=== PATIENT | male | born 1965 | race Caucasian/White ===

== ENCOUNTER 2020-07-09 16:21 | Emergency (ER) | payer OTHER, SELFPAY ==
--- NOTE | 2020-07-09 | ECG_ITS ---
Test Reason : CHEST PAIN Blood Pressure : / mmHG Vent. Rate : 102 BPM Atrial Rate : 102 BPM P-R Int : 168 ms QRS Dur : 092 ms QT Int : 328 ms P-R-T Axes : 041 020 054 degrees QTc Int : 427 ms Sinus tachycardia Otherwise normal ECG When compared with ECG of 03-FEB-2016 15:21, Nonspecific T wave abnormality no longer evident in Inferior leads Referred By: Eron Mckeon Electronically Signed By:MANNY AKBAR MD
--- NOTE | ~2020-07-09 | XR_ITS ---
EXAMINATION: XR CHEST CLINICAL INFORMATION: Chest pain COMPARISON: Chest x-ray 07/06/2010 TECHNIQUE: Frontal view of the chest was obtained. Portable 7:55 PM FINDINGS: Lungs are clear. No pulmonary vascular congestion. There is no pleural effusion. The heart size is normal. The cardiac and mediastinal contours are normal. There are multilevel degenerative changes of dorsal spine. XR/XR chest 1V IMPRESSION: Unremarkable examination.
--- NOTE | ~2020-07-09 | CT_ITS ---
EXAMINATION: CT ANGIOGRAM OF THE CHEST WITH AND WITHOUT CONTRAST (CT PULMONARY ANGIOGRAM FOR PE) CLINICAL INFORMATION: Reason for Exam cp with sob COMPARISON: None TECHNIQUE: Prior to contrast administration, noncontrast localization images were obtained. Subsequently, multidetector volumetric imaging was performed from the thoracic inlet to below the diaphragms following the administration of 70 mL Omnipaque 350 intravenous contrast. No contrast reaction reported Sagittal, coronal, and MIP oblique sagittal reformatted images were obtained on the CT workstation, uploaded to PACS, and reviewed. This CT examination was performed using dose optimization techniques as appropriate, variously including the following: *Automated exposure control *Adjustment of mA and/or kV according to patient size (this includes techniques or standardized protocols for targeted exams where dose is matched to indication/reason for exam; i.e. extremities or head) *Use of iterative reconstruction technique Total exam dose-length product 443 mGy-cm FINDINGS: QUALITY OF STUDY/CONTRAST BOLUS: Satisfactory. PULMONARY ARTERIES: No central or segmental pulmonary emboli. THORACIC AORTA: No aneurysm or dissection. LUNG: No focal consolidation, nodules or masses. The central airways are patent. PLEURA: No pleural effusion or pneumothorax. MEDIASTINUM: Normal heart size. No pericardial effusion. No hilar or mediastinal lymphadenopathy. No evidence of septal bowing or right heart strain. CHEST WALL/AXILLA: No axillary or internal mammary lymphadenopathy. OSSEOUS STRUCTURES: No acute or suspicious osseous abnormality. Degenerative changes throughout the spine. UPPER ABDOMEN: Low-attenuation of the liver suggestive of hepatic steatosis. No acute abnormality of the visualized upper abdomen. No reflux of contrast into the hepatic veins to suggest elevated right heart pressures. CT/CT angio chest PE protocol IMPRESSION: No pulmonary embolism or other acute intrathoracic abnormality. VTE: negative
[2020-07-09 16:42] VITALS: BP 139/85; PULSE 110; RESP 18; TEMP 36.9; O2SAT 98; BMI 41.5
[2020-07-09 19:03] VITALS: BP 154/68; PULSE 100; RESP 18; TEMP 36.8; O2SAT 97
--- NOTE | 2020-07-09 19:40 | ED.CHESTPAIN ---
HPI - Chest Pain General Chief Complaint: Chest Pain Stated Complaint: Chest pain Time Seen by Provider: 07/09/20 19:40 Source: patient Mode of arrival: ambulatory Limitations: no limitations History of Present Illness HPI narrative: Patient with no known cardiac history with sleeping in the car for last 2 week with increased stress complaining of shortness of breath for last 3 4 days also since noon today noticed sharp mid chest pain and throat pain happening for few seconds off and on no diaphoresis no nausea no vomiting no calf pain no radiation of pain to the arm no known history of sleep apnea complaint: chest pain Onset (ago): hour(s) Timing of current episode: episodic Prior episodes: No Onset: during rest Pain location: substernal Pain radiation: none Severity: mild Quality: sharp Related Data Previous Rx's Medication Instructions Recorded lorazepam [Ativan] 1 mg PO BEDTIME PRN #20 tab 07/09/20 Allergies Allergy/AdvReac Type Severity Reaction Status Date / Time Penicillins [PENICILLINS] Allergy Unknown RASH Unverified 02/05/20 15:39 Review of Systems Review of Systems: Constitutional : No Weight loss, No Fever, No Chills ENT/Mouth : No sore throat, No Rhinorrhea Eyes: No Eye Pain, No Swelling Cardiovascular : + Chest Pain, no palpitations Respiratory : No Cough, No Sputum, +shortness of breath Gastrointestinal : no Nausea, No Vomiting, No Diarrhea, No abdominal Pain, no black stools Genitourinary : No Dysuria, No Urinary Frequency Musculoskeletal : No joint pain, No Myalgias, No Joint Swelling Skin : No Skin Lesions, No rash Neuro : No Weakness, No Numbness, No Dizziness, No Headache Psych : No Anxiety/Panic, No Depression Heme/Lymph: No Bruising, No Lymphadenopathy Endocrine : No Polyuria, No Polydipsia All other systems reviewed and are negative [facility] Social History Social History Alcohol intake: current Alcohol intake frequency: a few times a month Alcohol type: wine Smoking Status: Former smoker Smoked in Last 30 Days: No Use of substances other than those prescribed or required for medical reasons: No Advance Directives: No Advance Directives Information Provided: Yes Physical Exam Vital Signs: Vital Signs: Last Vital Signs Temp 98.2 F 07/09/20 19:03 Pulse 96 07/09/20 23:02 Resp 16 07/09/20 23:02 BP 145/73 H 07/09/20 23:02 Pulse Ox 96 07/09/20 23:02 Body Mass Index 41.5 Appearance: Alert. Oriented X3. No acute distress. Eyes: Pupils equal, round and reactive to light. ENT: Pharynx normal. Neck: Normal inspection. Neck supple. CVS: Normal heart rate and rhythm. Pulses normal. Respiratory: No respiratory distress. Breath sounds normal. Abdomen: Soft and nontender. Bowel sounds are present, no mass palpable, no CVA tenderness Skin: Skin warm and dry. Normal skin color. Normal skin turgor. Extremities: No lower extremity edema. Neuro: Oriented X 3. No motor deficit. No sensory deficit. MDM - Chest Pain MDM Narrative Medical decision making narrative: Patient with anxiety and atypical chest pain CTA chest negative for any PE EKG normal cardiac enzymes normal patient feels anxious chest pain likely from anxiety and stress will discharge patient home Differential Diagnosis Differential diagnosis: Likely atypical chest pain, costochondritis and chest pain Lab Data Result diagrams: 07/09/20 20:48 07/09/20 20:48 Labs: Lab Results 07/09/20 07/09/20 07/09/20 Range/Units 20:47 20:47 20:48 WBC 7.4 (4.8-10.8) X10*3/uL RBC 4.81 (4.60-5.80) X10*6/uL Hgb 14.4 (14.0-18.0) g/dl Hct 42.9 (42-52) % MCV 89.2 (80-98) fL MCH 29.9 (27.0-33.0) pg MCHC 33.6 (31.0-36.0) g/dl RDW 11.9 (11.0-16.0) % Plt Count 192 (160-400) X10*3/uL MPV 11.5 (9.4-12.4) fL Immature Gran % (Auto) 0.5 H (0.0-0.4) % Neut % (Auto) 59.8 (45-73) % Lymph % (Auto) 28.1 (20-40) % [place] % (Auto) 8.3 (2-11) % Eos % (Auto) 2.6 (0-4) % Baso % (Auto) 0.7 (0-2) % Lymph # (Auto) 2.1 (1.2-4.9) X10*3/uL [place] # (Auto) 0.6 (0.1-1.2) X10*3/uL Eos # (Auto) 0.2 (0.0-0.4) X10*3/uL Baso # (Auto) 0.1 (0.0-0.2) X10*3/uL Abs Immat Gran (auto) 0.04 H (0.00-0.03) X10*3/uL Absolute Neuts (auto) 4.5 (2.0-8.3) X10*3/uL Absolute Nucleated RBC 0.000 (0.0-0.012) X10*3/uL Nucleated RBC % (auto) 0.0 (0.0-0.2) /100WBC PT (10.8-13.0) SEC INR (0.9-1.1) APTT (24.1-38.0) SEC D-Dimer NG/ML Sodium (135-145) mmol/L Potassium (3.3-5.1) mmol/L Chloride (96-108) mmol/L Carbon Dioxide (22-29) mmol/L Anion Gap (12-20) BUN (9-16) mg/dL Creatinine (0.5-1.4) mg/dL Estim Creat Clear Calc Estimated GFR Random Glucose (60-115) mg/dL Calcium (8.4-10.2) mg/dL Total Bilirubin (0.0-1.0) mg/dL Direct Bilirubin (0.0-0.5) mg/dL AST (5-37) U/L ALT (0-40) U/L Alkaline Phosphatase (39-117) U/L Troponin I High Sens 9.7 (<3.5-35.0) ng/L Total Protein (6.5-8.0) g/dL Albumin (3.5-5.0) g/dL COVID-19 (COLT) Negative (Negative) COVID-19 Clin Com See Note 07/09/20 07/09/20 Range/Units 20:48 20:48 WBC (4.8-10.8) X10*3/uL RBC (4.60-5.80) X10*6/uL Hgb (14.0-18.0) g/dl Hct (42-52) % MCV (80-98) fL MCH (27.0-33.0) pg MCHC (31.0-36.0) g/dl RDW (11.0-16.0) % Plt Count (160-400) X10*3/uL MPV (9.4-12.4) fL Immature Gran % (Auto) (0.0-0.4) % Neut % (Auto) (45-73) % Lymph % (Auto) (20-40) % [place] % (Auto) (2-11) % Eos % (Auto) (0-4) % Baso % (Auto) (0-2) % Lymph # (Auto) (1.2-4.9) X10*3/uL [place] # (Auto) (0.1-1.2) X10*3/uL Eos # (Auto) (0.0-0.4) X10*3/uL Baso # (Auto) (0.0-0.2) X10*3/uL Abs Immat Gran (auto) (0.00-0.03) X10*3/uL Absolute Neuts (auto) (2.0-8.3) X10*3/uL Absolute Nucleated RBC (0.0-0.012) X10*3/uL Nucleated RBC % (auto) (0.0-0.2) /100WBC PT 13.2 H (10.8-13.0) SEC INR 1.1 (0.9-1.1) APTT 32.1 (24.1-38.0) SEC D-Dimer 283 NG/ML Sodium 141 (135-145) mmol/L Potassium 3.9 (3.3-5.1) mmol/L Chloride 101 (96-108) mmol/L Carbon Dioxide 30 H (22-29) mmol/L Anion Gap 14 (12-20) BUN 19 H (9-16) mg/dL Creatinine 0.84 (0.5-1.4) mg/dL Estim Creat Clear Calc 137.1 Estimated GFR > 60 Random Glucose 287 H (60-115) mg/dL Calcium 9.8 (8.4-10.2) mg/dL Total Bilirubin 0.3 (0.0-1.0) mg/dL Direct Bilirubin < 0.2 (0.0-0.5) mg/dL AST 20 (5-37) U/L ALT 35 (0-40) U/L Alkaline Phosphatase 77 (39-117) U/L Troponin I High Sens (<3.5-35.0) ng/L Total Protein 6.9 (6.5-8.0) g/dL Albumin 4.1 (3.5-5.0) g/dL COVID-19 (COLT) (Negative) COVID-19 Clin Com ECG Data ECG #1: Attestation: I personally reviewed and interpreted this ECG as follows: Interpretation: Normal sinus rhythm sinus tachycardia heart rate 102 normal intervals normal axis no acute ST T wave changes impression no acute ischemia Discharge Plan Discharge Clinical Impression: Anxiety Chest pain Qualifiers: Chest pain type: unspecified Qualified Code(s): R07.9 - Chest pain, unspecified Patient Disposition: Home, Self-Care Instructions: Chest Pain (ED), Anxiety (ED) Additional Instructions: Rest at home. Take medication to relax. Follow-up with PCP if not better Prescriptions: New lorazepam [Ativan] 1 mg tablet 1 mg PO BEDTIME PRN (Reason: anxiety) Qty: 20 RF: 0
[2020-07-09] MEDS: Aspirin 81 MG TAB.CHEW 162 MG PO (20:31)
[2020-07-09 21:02] LABS: MANUAL DIFF FLAG NO
[2020-07-09 21:04] LABS: Basophils Absolute Auto 0.1 X10*3/uL (0.0-0.2); Basophils Percent Auto 0.7 % (0-2); Eosinophils Absolute Auto 0.2 X10*3/uL (0.0-0.4); Eosinophils Percent Auto 2.6 % (0-4); Hematocrit 42.9 % (42-52); Hemoglobin 14.4 g/dl (14.0-18.0); Imm Gran Abs Auto 0.04 X10*3/uL (0.00-0.03); Imm Gran Pct Auto 0.5 % (0.0-0.4); Lymphocytes Absolute Auto 2.1 X10*3/uL (1.2-4.9); Lymphocytes Percent Auto 28.1 % (20-40); Mean Corpuscular HGB Conc 33.6 g/dl (31.0-36.0); Mean Corpuscular Hemoglobin 29.9 pg (27.0-33.0); Mean Corpuscular Volume 89.2 fL (80-98); Mean Platelet Volume 11.5 fL (9.4-12.4); Monocytes Absolute Auto 0.6 X10*3/uL (0.1-1.2); Monocytes Percent Auto 8.3 % (2-11); Neutrophils Absolute Auto 4.5 X10*3/uL (2.0-8.3); Neutrophils Percent Auto 59.8 % (45-73); Platelet Count 192 X10*3/uL (160-400); Red Blood Count 4.81 X10*6/uL (4.60-5.80); Red Cell Distribution Width 11.9 % (11.0-16.0); White Blood Count 7.4 X10*3/uL (4.8-10.8)
[2020-07-09 21:14] LABS: INTERNATIONAL NORM RATIO 1.1 (0.9-1.1); Prothrombin Time 13.2 SEC (10.8-13.0)
[2020-07-09 21:17] LABS: D Dimer 283 NG/ML; Partial Thromboplastin Time 32.1 SEC (24.1-38.0)
[2020-07-09 21:24] LABS: COVID-19 Test Negative (Negative)
[2020-07-09 21:31] LABS: Alanine Aminotransferase 35 U/L (0-40); Albumin Level 4.1 g/dL (3.5-5.0); Alkaline Phosphatase 77 U/L (39-117); Anion Gap 14 (12-20); Aspartate Amino Transferase 20 U/L (5-37); Bilirubin Direct < 0.2 mg/dL (0.0-0.5); Bilirubin Total 0.3 mg/dL (0.0-1.0); Blood Urea Nitrogen 19 mg/dL (9-16); Calcium 9.8 mg/dL (8.4-10.2); Carbon Dioxide 30 mmol/L (22-29); Chloride 101 mmol/L (96-108); Creatinine Clr Calc Pharmacy 137.1; Estimated Glomerular Filt Rate > 60; Glucose Random 287 mg/dL (60-115); Potassium 3.9 mmol/L (3.3-5.1); Sodium 141 mmol/L (135-145); Total Protein 6.9 g/dL (6.5-8.0)
[2020-07-09 21:35] LABS: Troponin-I High Sensitivity 9.7 ng/L (<3.5-35.0)
[2020-07-09 21:46] VITALS: BP 130/71; PULSE 94; RESP 18; O2SAT 95
--- NOTE | 2020-07-09 21:47 | PC.NURSE ---
pt states he has no pain, sat 95% on room air. and pt states he is breathing better.
[2020-07-09] MEDS: iohexoL 350 MG/ML 100 ML INFUS..BTL IV (22:15)
[2020-07-09 22:23] VITALS: BP 203/94; PULSE 92; RESP 18; O2SAT 98
[2020-07-09 22:27] VITALS: BP 176/83; PULSE 86; RESP 18; O2SAT 99
[2020-07-09 23:02] VITALS: BP 145/73; PULSE 91; PULSE 96; RESP 16; O2SAT 96
[2020-07-10] VITALS: BP 117/60; PULSE 93; O2SAT 98
== END 2020-07-10 00:29 | disposition home or self-care (01) ==
PROVIDERS: Emergency Provider Internal Medicine; PCP Hospitalist
DX: F41.1 Generalized anxiety disorder (principal); F43.0 Acute stress reaction; R07.9 Chest pain, unspecified; Z87.891 Personal history of nicotine dependence; Z20.822 Contact with and (suspected) exposure to COVID-19; Z79.899 Other long term (current) drug therapy
CPT/HCPCS: 36415; 71045; 71275; 80048; 80076; 84484; 85025; 85379; 85610; 85730; 87071; 87635; 87880; 93005; 99284; 99285; Q9967

== ENCOUNTER 2024-02-03 08:00 | Emergency (ER) | payer OTHER, SELFPAY ==
[2024-02-03 08:04] VITALS: BP 138/74; PULSE 89; RESP 18; TEMP 36.3; O2SAT 96; BMI 38.7
--- NOTE | 2024-02-03 08:30 | ED_ITS ---
HPI - General Adult General Chief complaint: Skin/Abscess/Foreign Body Stated complaint: blisters on chest Time Seen by Provider: 02/03/24 08:30 History of Present Illness ED Provider: Ken ROLLE narrative: The patient is a 58-year-old male who says that he has developed a rash on his chest that started 2 days ago. It is a large patch of erythema with unusual vesicles. He says he has had no fever, sweats, chills. 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 He says he works with a lot of chemicals and he hypothesis is that this could be some kind of reaction to a chemical although he does not feel he got any chemicals directly on his skin. He also says he has not been out in the tou[place] or had any exposures to poison ernie or poison oak or anything else in the tou[place]. He says that the lesion is not particularly painful. He rates the discomfort as a 2/10. It is not significantly itchy in any way. Overall it is not bothering him very much but it is alarming looking and he thought he ought to come to the emergency room since it looked somewhat worse today than yesterday. He says that several years ago he had a patch of an unusual skin problem on his left antecubital fossa that he thinks was somewhat similar to this episode. He never received a specific diagnosis and he thinks that skin lesion got better without specific treatment. At the time it was attributed to some possible chemical exposure from work. Has a separate complaint the patient says he has had some pain in his right lower back near his right hip that has been bothering him for a few weeks but which is getting better on its own. He says he is here primarily for the rash on his chest. Related Data Previous Rx's ?Medication ?Instructions ?Recorded lorazepam 1 mg tablet (Ativan) 1 mg PO BEDTIME PRN anxiety #20 07/09/20 tabs cyclobenzaprine 10 mg tablet 10 mg PO TID PRN muscle spasm #15 02/03/24 tabs doxycycline monohydrate 100 mg 100 mg PO BID #20 caps 02/03/24 capsule Allergies Allergy/AdvReac Type Severity Reaction Status Date / Time Penicillins [PENICILLINS] Allergy Unknown RASH Verified 02/03/24 08:06 Review of Systems 2 Review of Systems: Yes all other systems are reviewed and are negative [facility] Social History Social History (System 05/31/21 @ 14:24 by Aster Lopez) Alcohol intake: current Alcohol intake frequency: a few times a month Alcohol type: wine Advance Directives: No Advance Directives Information Provided: No Do you have a plan to hurt others: No Plan Physical Exam ED Vital Signs: Vital Signs - 24 hr 02/03/24 08:04 02/03/24 10:49 Temperature 97.3 F 97.3 F Pulse Rate 89 89 Respiratory Rate 18 18 Blood Pressure 138/74 138/74 Pulse Oximetry 96 96 Oxygen Delivery Method Room Air Room Air BMI result Body Mass Index 38.7 Const Other: The patient is awake, alert, pleasant, cooperative. He does not appear in acute distress. However he does seem to have discomfort moving around he attributes this to the pain in the right lower back. HENMT Other: Face is symmetrical. Mucous membranes moist. Eyes Other: Pupils are round equal, conjunctivae clear Neck Other: No JVD, neck is supple Chest Other: The patient has a large patch of erythema in the anterior chest which crosses the midline. There are multiple unusual appearing vesicles. Resp Effort & Inspection: normal respiratory effort Auscultation: clear to auscultation bilaterally Cardio Rate: regular rate Rhythm: regular rhythm Heart sounds: S1 normal heart sound present and S2 normal heart sound present GI Other: Abdomen is soft and nontender Back/Spine/Pelvis Other: The patient has some slight tenderness in the right lower lumbar area and near the posterior superior iliac spine. No midline tenderness. Skin Other: There is a large patch of erythema associated with multiple vesicles of varieties of sizes. Please see the picture in the chest exam. The vesicles appear to be fluid-filled but when I attempted to unroof the largest of the vesicles the consistency of the anterior the vesicles was very gelatinous and unusual. The chest lesion seems to be an isolated lesion. Elsewhere the skin is normal. Neuro Other: The patient is awake and alert with a normal mental status and who seems otherwise neurologically intact Extrem Other: The patient has a lot of discomfort in the region of the right lower back and hip when he moves around. There is no deformity. He says that he has a right hip replacement. He seems to be able to bear weight well on the right hip. No peripheral edema. Medications Administered Discontinued Medications Generic Name Dose Route Start Last Admin Trade Name Freq PRN Reason Stop Dose Admin Doxycycline Monohydrate 100 mg 02/03/24 09:42 02/03/24 10:38 Doxycycline Monohydrate 100 Mg Capsule PO 02/03/24 09:43 100 mg ONCE ONE Administration Medical Decision Making Medical Decision Making [facility] Narrative: The patient is a 58-year-old male with a history of type 2 diabetes. He presents primarily for an unusual skin lesion that is quite large in the middle of his anterior chest. The lesion is characterized by erythema and unusual vesicles. Please see the picture above. The patient says he has once before had an unusual skin manifestation on his left arm that was attributed to chemicals at his work place and he wonders whether this could be something similar. He does not seem ill. He has no exposures other than possible work exposures although he does not really feel he has had a definite work exposure to the skin of his chest. He says he has not been in the tou[place] or camping or had any outdoor exposures of any significance. He has not had any fever, sweats, chills. I unroofed 1 of the vesicles of the lesion which I thought would be filled with clear fluid but which was really not so straight forward. There seemed to be some kind of a gelatinous quality to the unroofed vesicle. There was no purulence. The lesion is not associated with a great deal of discomfort. It is not itchy. I suspect this is some sort of unusual dermatitis. He will be started on doxycycline. The patient also seems to have a right lower back pain syndrome. He will be prescribed cyclobenzaprine. He should contact his regular doctor's office tomorrow for a follow up appointment. Lab Data 02/03/24 08:58 02/03/24 08:58 Labs: Lab Results 02/03/24 Range/Units 08:58 WBC 6.8 (4.8-10.8) X10*3/uL RBC 4.63 (4.60-5.80) X10*6/uL Hgb 13.4 L (14.0-18.0) g/dl Hct 40.4 L (42.0-52.0) % MCV 87.3 (80.0-98.0) fL MCH 28.9 (27.0-33.0) pg MCHC 33.2 (31.0-36.0) g/dl RDW 13.1 (11.0-16.0) % Plt Count 178 (160-400) X10*3/uL MPV 11.3 (9.4-12.4) fL Immature Gran % (Auto) 0.3 (0.0-0.4) % Neut % (Auto) 66.1 (45-73) % Lymph % (Auto) 21.4 (20-40) % [place] % (Auto) 8.4 (2-11) % Eos % (Auto) 2.9 (0-4) % Baso % (Auto) 0.9 (0-2) % Lymph # (Auto) 1.5 (1.2-4.9) X10*3/uL [place] # (Auto) 0.6 (0.1-1.2) X10*3/uL Eos # (Auto) 0.2 (0.0-0.4) X10*3/uL Baso # (Auto) 0.1 (0.0-0.2) X10*3/uL Abs Immat Gran (auto) 0.02 (0.00-0.03) X10*3/uL Absolute Neuts (auto) 4.5 (2.0-8.3) x10*3/uL Absolute Nucleated RBC 0.000 (0.0-0.012) X10*3/uL Nucleated RBC % (auto) 0.0 (0.0-0.2) /100WBC Sodium 139 (135-145) mmol/L Potassium 4.5 (3.3-5.1) mmol/L Chloride 105 (96-108) mmol/L Carbon Dioxide 22 (22-29) mmol/L Anion Gap 17 (12-20) BUN 13 (9-16) mg/dL Creatinine 0.65 (0.5-1.4) mg/dL Estim Creat Clear Calc 162.5 Estimated GFR > 60 Random Glucose 273 H (60-115) mg/dL Calcium 10.1 (8.4-10.2) mg/dL Total Bilirubin 0.4 (0.0-1.0) mg/dL Direct Bilirubin 0.1 (0.0-0.5) mg/dL AST 36 (5-37) U/L ALT 48 H (0-40) U/L Alkaline Phosphatase 52 (39-117) U/L C-Reactive Protein 0.59 H (< or = 0.50) mg/dL Total Protein 7.4 (6.5-8.0) g/dL Albumin 4.2 (3.5-5.0) g/dL Discharge Plan Discharge Clinical Impression: Dermatitis, Acute right-sided low back pain Patient Disposition: Home, Self-Care Instructions: Acute Low Back Pain (ED), Lower Back Exercises (ED) Additional Instructions: The skin redness and blisters on your chest are unusual. I am not sure if this is represents an infection or some kind of chemical irritation. I think it would be reasonable for you to take a course of antibiotics to see if it helps. You have been prescribed doxycycline. Please take this medication 2 times a day. For the pain you have been having in your right lower back I have sent a prescription for medication called cyclobenzaprine. This is a muscle relaxant medication. May take this up to 3 times a day as needed for pain. You may take this in addition to acetaminophen and ibuprofen. Do not drive on cyclobenzaprine as it can make you drowsy. Please contact your regular doctor's office tomorrow morning for a follow up appointment to discuss both the lesion on your chest and the pain in your lower back. Return to the emergency room if you feel things are getting significantly worse. Prescriptions: New doxycycline monohydrate 100 mg capsule 100 mg PO BID Qty: 20 0RF cyclobenzaprine 10 mg tablet 10 mg PO TID PRN (Reason: muscle spasm) Qty: 15 0RF No Action lorazepam [Ativan] 1 mg tablet 1 mg PO BEDTIME PRN (Reason: anxiety) Qty: 20 0RF Referrals: Deepak Schmitt MD [Physician] - (Unusual dermatitis of anterior chest) Interventions: ED Discharge Assessment Last Done: 02/03/24 10:49 Discharge Date/Time: 02/03/24 10:50 Print Language: [place]
[2024-02-03 09:01] LABS: MANUAL DIFF FLAG NO
[2024-02-03 09:06] LABS: Basophils Absolute Auto 0.1 X10*3/uL (0.0-0.2); Basophils Percent Auto 0.9 % (0-2); Eosinophils Absolute Auto 0.2 X10*3/uL (0.0-0.4); Eosinophils Percent Auto 2.9 % (0-4); Hematocrit 40.4 % (42.0-52.0); Hemoglobin 13.4 g/dl (14.0-18.0); Imm Gran Abs Auto 0.02 X10*3/uL (0.00-0.03); Imm Gran Pct Auto 0.3 % (0.0-0.4); Lymphocytes Absolute Auto 1.5 X10*3/uL (1.2-4.9); Lymphocytes Percent Auto 21.4 % (20-40); Mean Corpuscular HGB Conc 33.2 g/dl (31.0-36.0); Mean Corpuscular Hemoglobin 28.9 pg (27.0-33.0); Mean Corpuscular Volume 87.3 fL (80.0-98.0); Mean Platelet Volume 11.3 fL (9.4-12.4); Monocytes Absolute Auto 0.6 X10*3/uL (0.1-1.2); Monocytes Percent Auto 8.4 % (2-11); Neutrophils Absolute Auto 4.5 x10*3/uL (2.0-8.3); Neutrophils Percent Auto 66.1 % (45-73); Platelet Count 178 X10*3/uL (160-400); Red Blood Count 4.63 X10*6/uL (4.60-5.80); Red Cell Distribution Width 13.1 % (11.0-16.0); White Blood Count 6.8 X10*3/uL (4.8-10.8)
--- NOTE | 2024-02-03 09:12 | PC.NURSE ---
large red blistering rash on chest. states it isn't painful or itchy. Has had similar rashes on arms at other times. ? 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 Clear weeping blisters have opened in some areas
[2024-02-03 09:18] LABS: Alanine Aminotransferase 48 U/L (0-40); Albumin Level 4.2 g/dL (3.5-5.0); Alkaline Phosphatase 52 U/L (39-117); Anion Gap 17 (12-20); Aspartate Amino Transferase 36 U/L (5-37); Bilirubin Direct 0.1 mg/dL (0.0-0.5); Bilirubin Total 0.4 mg/dL (0.0-1.0); Blood Urea Nitrogen 13 mg/dL (9-16); C Reactive Protein 0.59 mg/dL (< or = 0.50); Calcium 10.1 mg/dL (8.4-10.2); Carbon Dioxide 22 mmol/L (22-29); Chloride 105 mmol/L (96-108); Creatinine Clr Calc Pharmacy 162.5; Estimated Glomerular Filt Rate > 60; Glucose Random 273 mg/dL (60-115); Potassium 4.5 mmol/L (3.3-5.1); Sodium 139 mmol/L (135-145); Total Protein 7.4 g/dL (6.5-8.0)
[2024-02-03] MEDS: Doxycycline Monohydrate 100 MG CAPSULE PO (10:38)
[2024-02-03 10:49] VITALS: BP 138/74; PULSE 89; RESP 18; TEMP 36.3; O2SAT 96
--- NOTE | 2024-02-05 09:18 | MHC.EDTECH ---
THIS PT CALLS TODAY @ THIS TIME...CALLS VERY UPSET AND RUDE THAT SOMEONE FROM [facility] CALLED HIM AND DID NOT LEAVE A MESSAGE. I TRIED TO HELP HIM AND SEND HIM TO THE FOLLOW UP JUST IN CASE IT WAS THEM. I EXPLAINED IT MIGHT NOT BE FOLLOW UP BUT THE [facility] HAS A CALL CENTER THAT MAY HAVE CALLED HIM TO SEE HOW HID VISIT WAS. HE CONTINUED TO BE RUDE AND EVEN STATED HE WOULD SHOW UP AT THE ER TO DEMAND TO SPEAK WITH SOMEONE, SAYING WE COULD CALL THE POLICE TO HAVE HIM HAULED OUT. IN THE END I TRANSFERRED HIS CALL TO THE [facility] FOLLOW UP PROVIDER.
--- NOTE | 2024-02-05 09:34 | PC.NURSE ---
batch or continuous still operator spoke to pt, pt states someone from [employer] called me and I need to know who called me. I was a patient in the ED the other day. I'm going to keep calling back until you can tell me who called me. This RN spoke to callback provider who did not call pt and reports there is nothing in the pt's chart that would require a callback from the ED. Pt made aware of this and that it would be impossible for this RN to know who called pt, as there is no documentation in the chart. Pt states I don't want anyone from [facility] calling me ever again! Pt made aware that this RN does not have the authority to do that, pt states Well then I'm going to flaco you!
== END 2024-02-03 10:50 | disposition home or self-care (01) ==
PROVIDERS: Emergency Provider Emergency Medicine
DX: S20.3 Other and unspecified superficial injuries of front wall of thorax (principal); L30.8 Other specified dermatitis; M54.50 Low back pain, unspecified; X58.XXXA Exposure to other specified factors, initial encounter; Y93.9 Activity, unspecified; Y92.9 Unspecified place or not applicable; Y99.9 Unspecified external cause status; Z79.84 Long term (current) use of oral hypoglycemic drugs; Z79.899 Other long term (current) drug therapy
CPT/HCPCS: 36415; 80048; 80076; 85025; 86140; 87070; 87205; 99282; 99283